=== PATIENT | female | born 1985 | race African-American/Black ===

== ENCOUNTER 2018-06-03 04:46 | Inpatient (IN) | payer MEDICAID ==
[~2018-06-03] VITALS: Ht 165.1 cm; Wt 148.9 kg
[2018-06-03 04:53] VITALS: Ht 165.1 cm; Wt 148.9 kg
[2018-06-03 07:09] LABS: BASOPHIL % 0.7 % (0-2)
[2018-06-03 07:14] LABS: ALBUMIN 3.6 g/dL (3.4-5.0); ALKALINE PHOSPHATASE 46 U/L (46-116); ALT/SGPT 21 U/L (14-59); AST/SGOT 11 U/L (15-37); BILIRUBIN TOTAL 0.3 mg/dL (0.20-1.00); CARBON DIOXIDE 26.4 mmol/L (21-32); CHLORIDE SERUM 106 mmol/L (98-107); CREATININE SERUM 0.7 mg/dL (0.6-1.0); FREE T4 0.91 ng/dL (0.76-1.46); GFR1 > 60 mL/min; GLUCOSE SERUM 87 mg/dL (74-106); LIPASE 97 IU/L (73-393); POTASSIUM SERUM 3.9 mmol/L (3.5-5.1); SODIUM SERUM 143 mmol/L (136-145); TOTAL PROTEIN, SERUM 7.2 g/dL (6.4-8.2)
[2018-06-03 07:18] LABS: CALCIUM 8.6 mg/dL (8.5-10.1)
[2018-06-03 07:33] LABS: RED BLOOD CELLS 4.22 M/mm3 (4.10-5.10)
[2018-06-03 07:34] LABS: PLATELET COUNT 421 x10^3mcL (130-400); RED CELL DISTRIBUTION WIDTH 19.3 % (11.5-14.5)
[2018-06-03 09:30] LABS: T3 TOTAL 1.13 ng/mL
[2018-06-03] MEDS ORDERED: HYDROXYZINE PAM25 MG (09:30)
[2018-06-03] MEDS ORDERED: COUMADIN5 MG (09:31)
[2018-06-03] MEDS ORDERED: LOV40I SQ (09:31)
[2018-06-03] MEDS ORDERED: SEROQUEL50 M1 PO (09:32)
[2018-06-03] MEDS ORDERED: DIL4 PO (09:32)
[2018-06-03] MEDS ORDERED: PERCOCET1 TAB PO (09:32)
[2018-06-03 09:39] LABS: CHOLESTEROL/HDL RATIO 3.3; MAGNESIUM 1.9 mg/dL (1.8-2.4); PHOSPHOROUS 3.1 mg/dL (2.5-4.9)
[2018-06-03 09:52] LABS: FREE T4 0.91 ng/dL (0.76-1.46); FREE THYROXINE INDEX 2.7 ug/dL (1.4-4.5); T4(THYROXINE) 8.5 ug/dL (4.7-13.3)
[2018-06-03 12:05] VITALS: BP 110/52
[2018-06-03 12:32] LABS: UA SPECIFIC GRAVITY 1.025 (1.005-1.035); microscopic required? YES; urine erythrocyte 3+ (NEGATIVE)
[2018-06-03 12:47] VITALS: BP 96/44
[2018-06-03 12:52] LABS: AMPHETAMINE QUAL UR NONE DETECTED (See below)
[2018-06-03 17:36] VITALS: BP 113/57
[2018-06-03 20:57] VITALS: BP 120/52
[2018-06-04 05:50] VITALS: BP 91/46
[2018-06-04 06:59] LABS: CALCIUM 7.8 mg/dL (8.5-10.1); CARBON DIOXIDE 25.2 mmol/L (21-32); CHLORIDE SERUM 108 mmol/L (98-107); CREATININE SERUM 0.6 mg/dL (0.6-1.0); GFR1 > 60 mL/min; GLUCOSE SERUM 88 mg/dL (74-106); MAGNESIUM 1.9 mg/dL (1.8-2.4); POTASSIUM SERUM 3.7 mmol/L (3.5-5.1); SODIUM SERUM 140 mmol/L (136-145)
[2018-06-04 07:00] LABS: BASOPHIL % 0.8 % (0-2); PLATELET COUNT 327 x10^3mcL (130-400)
[2018-06-04 07:46] LABS: RED CELL DISTRIBUTION WIDTH 17.7 % (11.5-14.5)
[2018-06-04 10:20] VITALS: BP 112/61
[2018-06-04 16:26] VITALS: BP 127/63
[2018-06-04 21:48] VITALS: BP 120/68
[2018-06-05 05:17] VITALS: BP 115/67
[2018-06-05 07:28] LABS: CARBON DIOXIDE 28.2 mmol/L (21-32); CHLORIDE SERUM 107 mmol/L (98-107); CREATININE SERUM 0.7 mg/dL (0.6-1.0); GFR1 > 60 mL/min; GLUCOSE SERUM 83 mg/dL (74-106); POTASSIUM SERUM 3.7 mmol/L (3.5-5.1); SODIUM SERUM 141 mmol/L (136-145)
[2018-06-05 07:51] LABS: BASOPHIL % 0.7 % (0-2); PLATELET COUNT 353 x10^3mcL (130-400)
[2018-06-05 07:55] LABS: RED CELL DISTRIBUTION WIDTH 18.9 % (11.5-14.5)
[2018-06-05 10:05] VITALS: BP 130/65
[2018-06-05 13:36] VITALS: BP 131/79
[2018-06-05 16:11] VITALS: BP 149/93
[2018-06-05 21:15] VITALS: BP 125/54
[2018-06-06 06:30] VITALS: BP 137/71
[2018-06-06 08:19] LABS: BASOPHIL % 0.3 % (0-2); PLATELET COUNT 394 x10^3mcL (130-400)
[2018-06-06 08:20] LABS: RED CELL DISTRIBUTION WIDTH 19.3 % (11.5-14.5)
[2018-06-06 08:21] LABS: rbc morphology (normal/abnorm) ABNORMAL (NORMAL)
[2018-06-06 08:31] LABS: CARBON DIOXIDE 27.6 mmol/L (21-32); CHLORIDE SERUM 105 mmol/L (98-107); CREATININE SERUM 0.7 mg/dL (0.6-1.0); GFR1 > 60 mL/min; GLUCOSE SERUM 96 mg/dL (74-106); MAGNESIUM 1.8 mg/dL (1.8-2.4); PHOSPHOROUS 3.4 mg/dL (2.5-4.9); POTASSIUM SERUM 3.8 mmol/L (3.5-5.1); SODIUM SERUM 138 mmol/L (136-145)
[2018-06-06 09:14] VITALS: BP 120/67
[2018-06-06 10:20] VITALS: BP 120/67
[2018-06-06 12:47] VITALS: BP 114/67
[2018-06-06 17:10] VITALS: BP 120/65
[2018-06-06 21:16] VITALS: BP 118/60
[2018-06-07 05:13] VITALS: BP 106/59
[2018-06-07 08:15] VITALS: BP 120/50
[2018-06-07 08:57] VITALS: BP 121/50
[2018-06-07 09:55] LABS: BASOPHIL % 0.2 % (0-2); PLATELET COUNT 367 x10^3mcL (130-400)
[2018-06-07 09:59] LABS: RED CELL DISTRIBUTION WIDTH 19.6 % (11.5-14.5)
[2018-06-07 10:12] LABS: CALCIUM 8.4 mg/dL (8.5-10.1); CARBON DIOXIDE 28.7 mmol/L (21-32); CHLORIDE SERUM 105 mmol/L (98-107); CREATININE SERUM 0.7 mg/dL (0.6-1.0); GFR1 > 60 mL/min; GLUCOSE SERUM 103 mg/dL (74-106); MAGNESIUM 1.8 mg/dL (1.8-2.4); POTASSIUM SERUM 3.7 mmol/L (3.5-5.1); SODIUM SERUM 140 mmol/L (136-145)
[2018-06-07 12:08] VITALS: BP 114/60
[2018-06-07] MEDS ORDERED: COUMADIN5 MG PO (12:36)
[2018-06-07] MEDS ORDERED: HYDROXYUREA500 MG PO (12:38)
[2018-06-07] MEDS ORDERED: COUMADIN10 MG GT (12:40)
[2018-06-07 12:44] VITALS: BP 114/60
== END 2018-06-07 21:53 | disposition home or self-care (01) | DRG 662 ==
LOC: ED 04:46 → DU 08:21 → EDBEDREQ 08:29 → DU 11:01
PROVIDERS: Emergency Medicine; Family Medicine
DX: D57.00 Hb-SS disease with crisis, unspecified (principal); D68.59 Other primary thrombophilia; E66.01 Morbid (severe) obesity due to excess calories; R31.9 Hematuria, unspecified; Z68.42 Body mass index [BMI] 45.0-49.9, adult; N08 Glomerular disorders in diseases classified elsewhere; G47.33 Obstructive sleep apnea (adult) (pediatric); D50.9 Iron deficiency anemia, unspecified; Z79.01 Long term (current) use of anticoagulants; Z86.718 Personal history of other venous thrombosis and embolism; Z86.73 Personal history of transient ischemic attack (TIA), and cerebral infarction without residual deficits
CPT/HCPCS: 83880; 84439; 87804; C9113; J1170; J1200; J1650; J1885; J2270; J7030; J7620; Q0092; Q0163; Q0177; Q9967

== ENCOUNTER 2018-06-20 22:02 | Emergency (ER) | payer MEDICAID ==
[~2018-06-20] VITALS: Ht 165.1 cm; Wt 149.7 kg
[~2018-06-20 22:02] MED LIST: COUMADIN10 MG GT; COUMADIN5 MG; COUMADIN5 MG PO; DIL4 PO; HYDROXYUREA500 MG PO; HYDROXYZINE PAM25 MG; LOV40I SQ; PERCOCET1 TAB PO; SEROQUEL50 M1 PO
[2018-06-20 22:17] VITALS: Ht 165.1 cm; Wt 149.7 kg
[2018-06-20 23:35] LABS: CALCIUM 8.9 mg/dL (8.5-10.1); CARBON DIOXIDE 26.9 mmol/L (21-32); CHLORIDE SERUM 102 mmol/L (98-107); CREATININE SERUM 0.8 mg/dL (0.6-1.0); GFR1 > 60 mL/min; GLUCOSE SERUM 114 mg/dL (74-106); POTASSIUM SERUM 4.1 mmol/L (3.5-5.1); SODIUM SERUM 137 mmol/L (136-145)
[2018-06-20 23:48] LABS: BASOPHIL % 0.5 % (0-2); PLATELET COUNT 197 x10^3mcL (130-400); RED BLOOD CELLS 4.97 M/mm3 (4.10-5.10)
[2018-06-20 23:57] LABS: RED CELL DISTRIBUTION WIDTH 24.6 % (11.5-14.5)
[2018-06-21 04:08] VITALS: BP 126/92
== END 2018-06-21 | disposition home or self-care (01) ==
LOC: ED 22:02
PROVIDERS: Emergency Medicine
DX: D57.00 Hb-SS disease with crisis, unspecified (principal); Z88.8 Allergy status to other drugs, medicaments and biological substances
CPT/HCPCS: J1200